=== PATIENT | female | born 1950 | race Caucasian/White ===

== ENCOUNTER 2017-05-11 09:01 | Emergency (ER) | payer BC, OTHER ==
[~2017-05-11] VITALS: Ht 149.9 cm; Wt 56.0 kg
[2017-05-11 09:02] VITALS: TEMP 36.8; Ht 149.9 cm; Wt 56.0 kg
[2017-05-11 09:17] VITALS: O2SAT 95
[2017-05-11] MEDS ORDERED: LEVO25TA PO (09:29)
[2017-05-11] MEDS ORDERED: NXM/40 PO (09:29)
[2017-05-11] MEDS ORDERED: FLUT0.15 (09:29)
[2017-05-11] MEDS ORDERED: CETI10TA84 PO (09:29)
[2017-05-11] MEDS ORDERED: ATOR-54 PO (09:29)
[2017-05-11 10:04] LABS: BASO % 0.5 %; BASO ABS # 0.03 K/uL (0-0.2); EOS % 2.1 %; EOS ABS # 0.13 K/uL (0-0.5); HEMATOCRIT 47.5 % (37-47); HEMOGLOBIN 16.4 g/dL (12.0-16.0); IG# 0.01 K/uL (0.00-0.02); LYMPH % 35.7 %; LYMPH ABS # 2.18 K/uL (1.2-3.4); MEAN CELL VOLUME 89.6 fL (80-100); MEAN CORPUSCULAR HEMOGLOBIN 30.9 pg (25-34); MEAN CORPUSCULAR HGB CONC 34.5 g/dl (32-36); MEAN PLATELET VOLUME 11.2 fL (7.4-10.4); MONO % 9.8 %; NEUT % 51.7 %; NEUT ABS # 3.16 K/uL (1.4-6.5); PLATELET COUNT 204 K/uL (130-400); RED CELL DISTRIBUTION WIDTH CV 14.4 % (11.5-14.5); RED CELL DISTRIBUTION WIDTH SD 46.7 fL (36.4-46.3); WHITE BLOOD COUNT 6.11 K/uL (4.8-10.8)
[2017-05-11 10:11] LABS: PTT PATIENT 25.2 SECONDS (21.0-31.0)
[2017-05-11 10:17] LABS: ALBUMIN 3.9 gm/dl (3.4-5.0); ALT/SGPT 25 U/L (12-78); BLOOD UREA NITROGEN 11 mg/dl (7-18); CALCIUM 9.2 mg/dl (8.5-10.1); CARBON DIOXIDE 26 mmol/L (21-32); CREATININE 0.66 mg/dl (0.60-1.20); GLUCOSE 112 mg/dl (70-99); LIPASE 151 U/L (73-393); POTASSIUM 4.6 mmol/L (3.5-5.1); SODIUM 138 mmol/L (136-145)
[2017-05-11 10:22] LABS: ALKALINE PHOSPHATASE 70 U/L (45-117); AST/SGOT 19 U/L (15-37); CKMB < 0.5 ng/ml (0.5-3.6); TOTAL PROTEIN 7.7 gm/dl (6.4-8.2)
--- NOTE | 2017-05-11 10:43 | DIAGNOSTIC IMAGING REPORT ---
CHEST ONE VIEW PORTABLE CLINICAL HISTORY: Fever, sepsis, atypical chest pain COMPARISON STUDY: No previous studies for comparison. FINDINGS: The cardiac and mediastinal contours are normal. There is no evidence of focal pulmonary consolidation. There is no evidence of failure. No pleural effusions are visualized.[ There is a linear focus of subsegmental atelectasis/scar at the left lung base. IMPRESSION: No active disease in the chest. Electronically signed by: Anthony Fox M.D. 05/11/2017 10:42 AM Dictated Date/Time: 05/11/2017 10:41 AM
--- NOTE | 2017-05-11 12:01 | EMERGENCY ROOM VISIT NOTE ---
History Report prepared by Virginiaibsydni: Kelley Tran Under the Supervision of: Dr. Socrates Womack D.O. First contact with patient: 09:13 Chief Complaint: CHEST PAIN Stated Complaint: CHEST PAIN, TIRED Nursing Triage Summary: pt to the ED with c/o left upper chest pain intermittantly for several months c/o feeling fatigue no sob no dizziness History of Present Illness The patient is a 67 year old female who presents to the Emergency Room with complaints of intermittent left sided chest discomfort beginning about 6-7 months ago. The patient states her pain has been more frequent over the past week. Presently, she denies and pain. Her pain does not worsen with taking a deep breath. The patient had a stress test several years ago. She reports having similar symptoms when she was diagnosed with thyroid problems. The patient takes daily medication for her thyroid. She denies any shortness of breath or swelling to her legs. Source of History: patient Onset: 7-8 months Position: chest Quality: other (discomfort) Timing: intermittent Associated Symptoms: + chest pain, No SOB Review of Systems See HPI for pertinent positives & negatives. A total of 10 systems reviewed and were otherwise negative. Family History Patient reports no known family medical history. Social History Marital Status: Housing Status: lives with significant other Current/Historical Medications Scheduled Atorvastatin (Lipitor), 20 MG PO DAILY Cetirizine (Zyrtec), 10 MG PO DAILY Esomeprazole Magnesium (Nexium), 40 MG PO DAILY Fluticasone Propionate (Nasal) (Flonase Allergy Relief), 2 SPRAYS NA DAILY Levothyroxine Sodium (Synthroid), 25 MCG PO DAILY Allergies Coded Allergies: Codeine (Unverified Allergy, Unknown, , 05/11/17) Ibuprofen (Unverified Allergy, Unknown, , 05/11/17) Iodinated Diagnostic Agents (Unverified Allergy, Unknown, , 05/11/17) Penicillins (Unverified Allergy, Unknown, HIVES, 05/11/17) Salicylates (Unverified Allergy, Unknown, , 05/11/17) Sulfa Antibiotics (Unverified Adverse Reaction, Unknown, ABDOMINAL PAIN, ) Physical Exam Vital Signs Date Time Temp Pulse Resp B/P (MAP) Pulse Ox O2 Delivery O2 Flow Rate FiO2 05/11/17 12:34 77 18 117/71 97 05/11/17 11:51 89 13 121/77 96 Room Air 05/11/17 10:26 82 20 131/83 99 Nasal Cannula 2.0 05/11/17 09:24 91 05/11/17 09:18 87 20 148/110 96 Room Air 05/11/17 09:17 95 Room Air 05/11/17 09:02 36.8 105 18 144/81 97 Physical Exam CONSTITUTIONAL/VITAL SIGNS: Reviewed / noted above. GENERAL: Non-toxic in appearance. INTEGUMENTARY: Warm, dry, and Morales-Sanchez. HEAD: Normocephalic. EYES: without scleral icterus or trauma. ENT/OROPHARYNX: clear and moist. LYMPHADENOPATHY/NECK: Is supple without lymphadenopathy or meningismus. RESPIRATORY: Lungs clear and equal. CARDIOVASCULAR: Regular rate and rhythm. GI/ABDOMEN: Soft and nontender. No organomegaly or pulsatile mass. No rebound or guarding. Normal bowel sounds. EXTREMITIES: Warm and well perfused. BACK: No CVA tenderness. NEUROLOGICAL: Intact without focal deficits. PSYCHIATRIC: normal affect. MUSCULOSKELETAL: Normally developed with good muscle tone. Medical Decision & Procedures ER Provider Diagnostic Interpretation: Radiology results as stated below per my review and radiologist interpretation: CHEST ONE VIEW PORTABLE FINDINGS: The cardiac and mediastinal contours are normal. There is no evidence of focal pulmonary consolidation. There is no evidence of failure. No pleural effusions are visualized.[ There is a linear focus of subsegmental atelectasis/scar at the left lung base. IMPRESSION: No active disease in the chest. Electronically signed by: Anthony Fox M.D. Laboratory Results 05/11/17 09:48 Red Blood Count 5.30, Mean Corpuscular Volume 89.6, Mean Corpuscular Hemoglobin 30.9, Mean Corpuscular Hemoglobin Concent 34.5, Mean Platelet Volume 11.2, Neutrophils (%) (Auto) 51.7, Lymphocytes (%) (Auto) 35.7, Monocytes (%) (Auto) 9.8, Eosinophils (%) (Auto) 2.1, Basophils (%) (Auto) 0.5, Neutrophils # (Auto) 3.16, Lymphocytes # (Auto) 2.18, Monocytes # (Auto) 0.60, Eosinophils # (Auto) 0.13, Basophils # (Auto) 0.03 05/11/17 09:48 Test 05/11/17 09:48 White Blood Count 6.11 K/uL (4.8-10.8) Red Blood Count 5.30 M/uL (4.2-5.4) Hemoglobin 16.4 g/dL (12.0-16.0) Hematocrit 47.5 % (37-47) Mean Corpuscular Volume 89.6 fL (80-100) Mean Corpuscular Hemoglobin 30.9 pg (25-34) Mean Corpuscular Hemoglobin Concent 34.5 g/dl (32-36) Platelet Count 204 K/uL (130-400) Mean Platelet Volume 11.2 fL (7.4-10.4) Neutrophils (%) (Auto) 51.7 % Lymphocytes (%) (Auto) 35.7 % Monocytes (%) (Auto) 9.8 % Eosinophils (%) (Auto) 2.1 % Basophils (%) (Auto) 0.5 % Neutrophils # (Auto) 3.16 K/uL (1.4-6.5) Lymphocytes # (Auto) 2.18 K/uL (1.2-3.4) Monocytes # (Auto) 0.60 K/uL (0.11-0.59) Eosinophils # (Auto) 0.13 K/uL (0-0.5) Basophils # (Auto) 0.03 K/uL (0-0.2) RDW Standard Deviation 46.7 fL (36.4-46.3) RDW Coefficient of Variation 14.4 % (11.5-14.5) Immature Granulocyte % (Auto) 0.2 % Immature Granulocyte # (Auto) 0.01 K/uL (0.00-0.02) Prothrombin Time 10.0 SECONDS (9.0-12.0) Prothromb Time International Ratio 1.0 (0.9-1.1) Activated Partial Thromboplast Time 25.2 SECONDS (21.0-31.0) Partial Thromboplastin Ratio 1.0 Anion Gap 6.0 mmol/L (3-11) Est Creatinine Clear Calc Drug Dose 62.3 ml/min Estimated GFR () 105.2 Estimated GFR (Non- 90.8 BUN/Creatinine Ratio 17.3 (10-20) Calcium Level 9.2 mg/dl (8.5-10.1) Total Bilirubin 0.8 mg/dl (0.2-1) Direct Bilirubin 0.1 mg/dl (0-0.2) Aspartate Amino Transf (AST/SGOT) 19 U/L (15-37) Alanine Aminotransferase (ALT/SGPT) 25 U/L (12-78) Alkaline Phosphatase 70 U/L (45-117) Total Creatine Kinase 59 U/L (26-192) Creatine Kinase MB < 0.5 ng/ml (0.5-3.6) Creatine Kinase MB Ratio (0-3.0) Troponin I < 0.015 ng/ml (0-0.045) Total Protein 7.7 gm/dl (6.4-8.2) Albumin 3.9 gm/dl (3.4-5.0) Globulin 3.8 gm/dl (2.5-4.0) Albumin/Globulin Ratio 1.0 (0.9-2) Lipase 151 U/L (73-393) Laboratory results as stated above per my review. ECG Indication: chest pain Rate (beats per minute): 93 Rhythm: normal sinus Findings: no ectopy, other (no acute injury ) Change: EKG interpreted by me. ED Course 0929: Previous medical records were reviewed. The patient was evaluated in room A9B. A complete history and physical examination was performed. 1235: On reevaluation, the patient is resting comfortably. I discussed the results and findings with the patient. She verbalized agreement of the treatment plan. The patient was discharged home. Medical Decision the differential was considered includes acute myocardial infarction, acute coronary syndrome, myocarditis, pericarditis, pericardial effusions /tamponade, esophageal perforation, thoracic aortic dissection, pulmonary embolism, pneumonia, pneumothorax, pancreatitis, shingles, acute cholecystitis, perforated abdominal viscus. This is a 67-year-old female who presents to the ED with a chief complaint of off and on chest pain for the past 6-7 months. The patient reports that it has been more consistent over the past week. She states that it comes and goes. It is mostly random. Occasionally associated with activity. She states that she has felt tired since Monday. The patient denies any fevers or recent illness. She cannot specifically say that this is related to exertion. It seems to occur at rest as well. Her vital signs are stable. Her physical exam was unremarkable. EKG shows a normal sinus rhythm. No ectopy or acute injury. CBC is normal, complete metabolic panel was normal, troponin was negative and a chest x-ray is negative for acute disease. The patient was told results the test per she is felt to be stable for discharge and outpatient follow-up. Medication Reconcilliation Current Medication List: was personally reviewed by me Blood Pressure Screening Patient's blood pressure: Normal blood pressure Impression Primary Impression: Precordial chest pain Scribe Attestation The scribe's documentation has been prepared under my direction and personally reviewed by me in its entirety. I confirm that the note above accurately reflects all work, treatment, procedures, and medical decision making performed by me. Departure Information Dispostion Home / Self-Care Referrals Chava Delarosa M.D. (PCP) Forms Call Back Authorization, HOME CARE DOCUMENTATION FORM, IMPORTANT VISIT INFORMATION Patient Instructions My [facility] Additional Instructions Follow-up with your doctor for further care and evaluation in 1-2 days. Return to the emergency department for worsening or new symptoms or any concerns. You have been examined and treated today on an emergency basis only. This is not a substitute for, or an effort to provide, complete comprehensive medical care. It is impossible to recognize and treat all injuries or illnesses in a single emergency department visit. It is therefore important that you follow up closely with your doctor. Call as soon as possible for an appointment.
[2017-05-11 12:34] VITALS: BP 117/71; PULSE 77; O2SAT 97
== END 2017-05-11 12:35 | disposition home or self-care (01) ==
LOC: C.EDB 09:02 → C.EDA 12:35
DX: R07.2 Precordial pain (principal)